=== PATIENT | female | born 1940 | race African-American/Black ===

== ENCOUNTER 2017-02-27 10:30 | Outpatient (RCR) | payer MEDICARE, OTHER ==
[~2017-02-27 10:30] MED LIST: ASPIR-LOW81 MG ORAL; COZAAR50 MG PO; HEPARIN SO5000 UNIT2 SUBQ; HYDROMORPHO2 MG/1 M2 IVP; JANUVIA25 MG ORAL; MAXIPIME1 G1 IV; METFORMIN HCL1000 M1 ORAL; METFORMIN HCL500 M1 ORAL; NEXIUM40 MG ORAL; NORCO 5-325 TA1 EAC1 ORAL; NOVOLOG100 UNIT/3 SUBQ; PROTONIX40 MG ORAL; VANCOMYCIN1 GM/2502 IVPB; VITAMIN D1000 UNI1 ORAL; ZOLPIDEM TARTRAT5 MG ORAL
== END 2017-03-11 | disposition home or self-care (01) ==
LOC: PTY 10:30
DX: Z96.652 Presence of left artificial knee joint (principal); I10 Essential (primary) hypertension; E11.9 Type 2 diabetes mellitus without complications; M19.90 Unspecified osteoarthritis, unspecified site; F32.9 Major depressive disorder, single episode, unspecified
CPT/HCPCS: 97110; 97161; G0283; G8978; G8979

== ENCOUNTER 2017-03-13 10:50 | Outpatient (RCR) | payer MEDICARE, OTHER | END 2017-04-10 | disposition home or self-care (01) | LOC: PTY 10:50 | DX: M25.562 Pain in left knee (principal); Z96.652 Presence of left artificial knee joint; E11.9 Type 2 diabetes mellitus without complications; M19.90 Unspecified osteoarthritis, unspecified site; F32.9 Major depressive disorder, single episode, unspecified | CPT/HCPCS: 97110; 97140; G0283; G8978; G8979 ==

== ENCOUNTER 2017-04-21 14:40 | Outpatient (RCR) | payer MEDICARE, OTHER | END 2017-05-11 | disposition home or self-care (01) | LOC: PTY 14:40 | DX: M25.562 Pain in left knee (principal); Z96.652 Presence of left artificial knee joint; E11.9 Type 2 diabetes mellitus without complications; M19.90 Unspecified osteoarthritis, unspecified site; F32.9 Major depressive disorder, single episode, unspecified | CPT/HCPCS: 97110; 97140; G0283 ==

== ENCOUNTER 2017-06-09 14:30 | Outpatient (RCR) | payer MEDICARE, OTHER | END 2017-06-11 | disposition home or self-care (01) | LOC: PTY 14:30 | DX: M25.562 Pain in left knee (principal); Z96.652 Presence of left artificial knee joint; E11.9 Type 2 diabetes mellitus without complications; M19.90 Unspecified osteoarthritis, unspecified site; F32.9 Major depressive disorder, single episode, unspecified | CPT/HCPCS: 97110; G0283 ==

== ENCOUNTER 2017-06-29 13:32 | Outpatient (RCR) | payer MEDICARE, OTHER | END 2017-07-11 | disposition home or self-care (01) | LOC: PTY 13:32 | DX: M25.562 Pain in left knee (principal); Z96.652 Presence of left artificial knee joint; E11.9 Type 2 diabetes mellitus without complications; M19.91 Primary osteoarthritis, unspecified site; F32.9 Major depressive disorder, single episode, unspecified | CPT/HCPCS: 97110; G0283; G8979; G8980 ==

== ENCOUNTER 2018-12-27 13:55 | Outpatient (CLI) | payer MEDICARE, OTHER ==
--- NOTE | 2018-12-27 14:45 | Diagnostic Imaging Report ---
Indication: Cough Technique: 2 views of the chest Comparison: 07/25/2016 Findings: The heart is upper limits normal in size. There is some atelectasis at the left lung base. The lungs and pleural spaces are otherwise clear. Impression: No acute process
== END 2018-12-27 15:55 | disposition home or self-care (01) ==
LOC: RAD 13:55
DX: I10 Essential (primary) hypertension (principal); Z01.818 Encounter for other preprocedural examination; J98.11 Atelectasis
CPT/HCPCS: 71046

== ENCOUNTER 2019-01-03 06:45 | Day surgery (SDC) | payer MEDICARE, OTHER ==
--- NOTE | 2018-12-31 11:12 | Opthalmology H&P ---
Ophthalmology H&P H&P Chief Complaint: decreased vision in left eye HPI Vision Affects Ability to: read, manage personal affairs Past Ocular History: glaucoma HPI Narrative Blurry Vision Exam Visual Acuity: OD 20/50 OS 20/100 Tension: OD 10 OS 11 Eye Exam: normal OU: external exam, palpebral fissure-width, marginal reflex distance, levator function, corneas, anterior chambers, lens, fundus exam Assessment/Plan Treatment Plan: cataract extraction w/ lens implant Goals of Treatment: improvement of vision Attestation Attestation The risks and benefits of the surgery as well as alternative procedures were explained to the patient in detail. Gregory Coroenl MD Dec 31, 2018 11:12
--- NOTE | 2018-12-31 11:13 | Pre-Procedure Note/Attestation ---
Pre-Procedure Note/Attestation Complete Prior to Procedure Planned Procedure: left Procedure Narrative: Cataract Extraction With Intraocular Lens Implant Left Eye Indications for Procedure Pre-Operative Diagnosis: Cataract Left Eye Attestation I attest that I discussed the nature of the procedure; its benefits; risks and complications; and alternatives (and the risks and benefits of such alternatives ), prior to the procedure, with the patient (or the patient's legal customer relations representative). I attest that, if there was a reasonable possibility of needing a blood transfusion, the patient (or the patient's legal customer relations representative) was given the [facility] standardized written summary, pursuant to the Mookie Debby Blood Safety Act ([place] Health and Safety Code # 1645, as amended). I attest that I re-evaluated the patient just prior to the surgery and that there has been no change in the patient's H&P, except as documented below: Gregory Coronel MD Dec 31, 2018 11:13
[~2019-01-03] VITALS: Ht 160 cm; Wt 69.9 kg
[~2019-01-03 06:45] MED LIST changes: +BUSPIRONE HCL5 M2 ORAL; +GABAPENTIN100 MG ORAL; +LOSARTAN-HCTZ1 EAC2 ORAL; +ZANTAC150 MG ORAL
[2019-01-03] MEDS ORDERED: Tetracaine 0.5% Opth 4ml Soln LEFT EYE ONE (07:00)
[2019-01-03] MEDS ORDERED: Proparacaine 0.5% Opth Soln 15ml LEFT EYE ONE (07:00)
[2019-01-03] MEDS ORDERED: Akten 3.5% 1ml Btl LEFT EYE ONE (07:00)
[2019-01-03] MEDS: Diclofenac Sod 0.1% Op Soln LEFT EYE SCH ×3 (10:04→10:41)
[2019-01-03] MEDS: Tobramycin Op Soln 0.3% 5ml LEFT EYE SCH ×3 (10:04→10:41)
[2019-01-03] MEDS: Tropicamide 1% Opth 15ml Soln LEFT EYE SCH ×3 (10:04→10:41)
[2019-01-03] MEDS: Cyclopentolate 1% Opth Sol 2ml LEFT EYE SCH ×3 (10:04→10:41)
[2019-01-03] MEDS: Phenylephrine 10% Opth Soln 5ml LEFT EYE SCH ×3 (10:05→10:41)
[2019-01-03 10:27] VITALS: BP 159/86
--- NOTE | 2019-01-03 10:32 | Anethesia Preoperative Eval ---
Anesthesia Pre-op PMH/ROS General Date of Evaluation: Jan 03, 2019 Anesthesiologist: Andrea ASA Score: ASA 3 Mallampati Score Class I : Soft palate, uvula, fauces, pillars visible Class II: Soft palate, uvula, fauces visible Class III: Soft palate, base of uvula visible Class IV: Only hard plate visible Mallampati Classification: Class II Surgeon: Berna Diagnosis: Left cataract Surgical Procedure: Left cataract extraction with IOL Anesthesia History: none Family History: no anesthesia problems Allergies: Coded Allergies: No Known Allergies (Verified , 04/20/08) Medications: see eMAR Patient NPO?: Yes NPO Date: Jan 02, 2019 NPO Time: 20:00 Past Medical History Cardiovascular: Reports: HTN; Denies: CAD, IA, valve dz, arrhythmia, other Pulmonary: Reports: asthma, COPD; Denies: MAAME, other Gastrointestinal/Genitourinary: Reports: GERD, ESRD; Denies: CRI, other Neurologic/Psychiatric: Reports: depression/anxiety; Denies: dementia, CVA, TIA, other Endocrine: Reports: DM; Denies: hypothyroidism, steroids, other HEENT: Denies: cataract (L), cataract (R), glaucoma, ALGAACIQ (L), ALGAACIQ (R), other Hematology/Immune: Reports: anemia; Denies: DVT, bleeding disorder, other Musculoskeletal/Integumentary: Reports: OA; Denies: RA, DJD, DDD, edema, other PSxH Narrative: right cataract, lap appy, right breast lumpectomy, left TKR, right shoulder Anesthesia Pre-op Phys. Exam Physician Exam Last Vital Signs Date Time Temp Pulse Resp B/P (MAP) Pulse Ox O2 Delivery O2 Flow Rate FiO2 01/03/19 10:27 98.9 78 18 159/86 99 Room Air Constitutional: NAD Cardiovascular: RRR Respiratory: CTA Airway Exam Mallampati Score: Class II MO: limited ROM: limited Teeth: missing Dentures: upper, lower Anesthesia Pre-op A/P Labs see chart Studies Pre-op Studies: EKG - sr Risk Assessment & Plan Assessment: ASA III Plan: MAC Status Change Before Surgery: No Pre-Antibiotics Drug: N/A Amanda Wilhelm MD Jan 03, 2019 10:32
[2019-01-03] MEDS ORDERED: DiphenhydrAMINE 50mg/ml Inj IVP PRN (10:45)
[2019-01-03] MEDS ORDERED: LR 1000ml ONE (12:40)
[2019-01-03] MEDS ORDERED: Sterile Water Irrig 1000ml IRRIG ONE (12:40)
[2019-01-03] MEDS ORDERED: Povidone-Iodine 5% opth solution ONE (13:00)
[2019-01-03] MEDS ORDERED: Pred Forte 1% Opth Susp 1ml ONE (13:00)
[2019-01-03] MEDS ORDERED: BSS 500ml btl ONE (13:00)
[2019-01-03] MEDS ORDERED: EPINEPHrine 1mg/1ml Amp ONE (13:00)
[2019-01-03] MEDS ORDERED: Pilocarpine 1% Opth 15ml Soln ONE (13:00)
[2019-01-03] MEDS ORDERED: Sodium Hyaluronate 14 mg/ml 0.85ml ONE (13:00)
[2019-01-03] MEDS ORDERED: Maxitrol Opth Oint 3.5gm ONE (13:00)
[2019-01-03] MEDS ORDERED: Dexamethasone 4mg/ml vial ONE (13:00)
[2019-01-03 13:20] VITALS: BP 156/75
--- NOTE | 2019-01-03 13:24 | 48 Hour Post Anesthesia Eval ---
Post Anesthesia Evaluation Procedure: Left cataract extractioon with IOL Date of Evaluation: Jan 03, 2019 Airway: patent Nausea: No Vomiting: No Pain Intensity: 0 Hydration Status: adequate Cardiopulmonary Status: at baseline Mental Status/LOC: patient returned to baseline Post-Anesthesia Complications: 0 Follow-up care needed: ready to discharge Amanda Wilhelm MD Jan 03, 2019 13:24
--- NOTE | 2019-01-03 13:24 | Immediate Post-Op Evaluation ---
Immediate Post-Op Evalulation Immediate Post-Op Evalulation Procedure: Left cataract extractioon with IOL Date of Evaluation: Jan 03, 2019 Time of Evaluation: 13:25 IV Fluids: 400 Blood Products: 0 Estimated Blood Loss: 0 Urinary Output: 0 Blood Pressure Systolic: 156 Blood Pressure Diastolic: 75 Pulse Rate: 69 Respiratory Rate: 16 O2 Sat by Pulse Oximetry: 99 Temperature (Fahrenheit): 97.8 Pain Score (1-10): 0 Nausea: No Vomiting: No Complications 0 Patient Status: awake, reacts, patent, none Hydration Status: adequate Drug: N/A Amanda Wilhelm MD Jan 03, 2019 13:24
[2019-01-03 13:25] VITALS: BP 143/73
[2019-01-03 13:30] VITALS: BP 127/65
[2019-01-03 13:40] VITALS: BP_SYST 127; BP_SYST 132; BP_DIAS 60; BP_DIAS 69
[2019-01-03 14:15] VITALS: BP 145/69
--- NOTE | 2019-01-04 12:51 | Brief Operative Note ---
Immediate Post Operative Note Operative Note Chief Complaint: blurry vision Pre-op Diagnosis: Dense Cataract Left Eye Procedure: phaco with IOL Post-op Diagnosis: Pseudophakia Post-op Diagnosis: same as pre-op Findings: consistent w/pre-op dx studies Surgeon: Berna Anesthesiologist: Tate Anesthesia: MAC Specimen: none Complications: none Condition: stable Fluids: LR Estimated Blood Loss: none Drains: none Implant(s) used?: Yes Gregory Coronel MD Jan 04, 2019 12:51
--- NOTE | 2019-01-04 12:52 | Operative Note - PDOC ---
Operative Note Operative Note Chief Complaint: blurry vision Pre-op Diagnosis: Dense Cataract Left Eye Procedure: phaco with IOL Post-op Diagnosis: Pseudophakia Post-op Diagnosis: same as pre-op Operative Findings: consistent w/pre-op dx studies Surgeon: Berna Anesthesiologist: Tate Anesthesia: MAC Specimen: none Complications: none Condition: stable Fluids: LR Estimated Blood Loss: none Drains: none Implant(s) used?: Yes Indications for Procedure cataract Description of Procedure This patient has been complaining visually significant cataract in the affected eye with the best corrected visual acuity under moderate glare conditions worse. The patient complains of difficulties with glare in performing activities of daily living and wants to manage personal affairs with comfort and accuracy and see well enough to move with safety at home and outdoors. The risks, benefits and alternatives of the procedure were discussed with the patient in the office prior to scheduling surgery. All questions from the patient were answered after the surgical procedure was explained in detail. The risks of the procedure as explained to the patient include, but are not limited to, pain, infection, bleeding, loss of vision, retinal detachment, need for further surgery, loss of lens nucleus, double vision, etc. Alternative procedures were discussed which include, to do nothing or seek a second opinion. Informed consent for this procedure was obtained from the patient. The patient was referred to a primary care physician for a cardiopulmonary clearance prior to surgery, after proper evaluation was done patient was properly scheduled for outpatient surgery. The patient was brought to the operating room where the anesthesiologist established I.V. lines and cardiac monitoring leads. Mild intravenous sedation was administered. The patient was then prepared with a 5% solution of povidone -iodine to the conjunctival fornix and lashes, and a 5% solution of povidone- iodine to the lids and periorbital skin. The patient was then draped in the usual sterile fashion. A lid speculum was then placed in the operative eye. A keratome blade was then used to create a biplanar incision into the anterior chamber. Viscoelastics was then instilled into the anterior chamber. A 3-mm single pass clear corneal incision was made just anterior to the vascular arcade of the temporal limbus using a keratome. Anterior capsulorrhexis was created. The nucleus was hydrodissected and hydrodelineated, and was freely movable in the capsular bag. The nucleus was then phacoemulsified using a quadrantic [id number] technique. Following the deep groove formation, the lens was split bimanually and the resultant quadrants and cortical material was removed under vacuum burst -mode phacoemulsification. Peripheral cortex was removed with the irrigation and aspiration handpiece. The capsular bag was expanded with viscoelastic. The intraocular lens was then inspected for right power and size and thought to be satisfactory. The implant was inspected under the microscope and found to be free of defects. The implant was inserted into the cartridge system under viscoelastic and placed in the capsular bag. The trailing haptic was positioned with the cartridge system. Viscoelastics was removed from the anterior chamber using the irrigation and aspiration unit. The corneal wound was then tested for leaks and none were found. The lid speculum were then removed. Sponge and needle counts were correct. An eye patch and shield were placed over the operative eye. The patient was taken to the recovery room in stable condition. There were no complications. The patient tolerated the procedure well. The patient was then transferred to the ambulatory surgery unit in stable and satisfactory condition , was given detailed written instructions and asked to follow up in the office the next day. Gregory Coronel MD Jan 04, 2019 12:52
--- NOTE | 2019-01-05 19:12 | Physician Query ---
--------- THIS DOCUMENT IS A PERMANENT PART OF THE MEDICAL RECORD --------- PLEASE COMPLETE DOCUMENT BEFORE SIGNING Dear Dr. WALLS Date: 01/05/19 Seat Joiner/CDS Name: HOLLY, CCS Exercise your independent professional judgment when responding to the query. Questions asked do not imply a particular answer is desired or expected. We greatly appreciate your clarification on this issue. CLINICAL DOCUMENTATION STATES: Operative Note Chief Complaint: blurry vision Pre-op Diagnosis: Dense Cataract Left Eye Procedure: phaco with IOL Post-op Diagnosis: Pseudophakia Post-op Diagnosis: same as pre-op Operative Findings: consistent w/pre-op dx studies Please respond to the following question: Is there a diagnosis specific to these symptoms or values? If so please state below. PLEASE SPECIFY IF KNOWN THE TYPE OF CATARACT IN LEFT EYE? PHYSICIAN RESPONSE: MANDEEP WALLS M.D. DATE & TIME [facility]
== END 2019-01-03 15:15 | disposition home or self-care (01) ==
LOC: SUR 06:45
DX: H25.12 Age-related nuclear cataract, left eye (principal); J44.9 Chronic obstructive pulmonary disease, unspecified; I12.0 Hypertensive chronic kidney disease with stage 5 chronic kidney disease or end stage renal disease; E11.22 Type 2 diabetes mellitus with diabetic chronic kidney disease; N18.6 End stage renal disease; K21.9 Gastro-esophageal reflux disease without esophagitis; M19.90 Unspecified osteoarthritis, unspecified site; Z90.89 Acquired absence of other organs; Z96.652 Presence of left artificial knee joint; M17.0 Bilateral primary osteoarthritis of knee
CPT/HCPCS: 66984; J0171; J1100; J3370; V2632; 94003; 94150